=== PATIENT | male | born 1950 | race Hispanic/Latino ===

== ENCOUNTER 2021-11-04 11:05 | Day surgery (SDC) | payer OTHER ==
--- NOTE | 2021-11-01 14:33 | RAD REPORT ---
EXAM DESCRIPTION: RAD - Chest Pa And Lat (2 Views) - 11/01/2021 2:25 pm CLINICAL HISTORY: pre procedure screening, pending prostate surgery COMPARISON: None TECHNIQUE: Frontal and lateral views of the chest were obtained. FINDINGS: The lungs are fibrotic but clear of a peripheral mass consolidation. No acute failure or v olume overload suspected. No alivia mass or lymphadenopathy. Heart size is normal and central vascula ture is within normal limits. No pleural effusion or pneumothorax seen. No acute bony finding noted . No aortic abnormality. IMPRESSION: Chronic interstitial lung disease evident. No acute cardiopulmonary process suspected.
[2021-11-01 14:41] LABS: Absolute Lymphocytes (CBC) 2.8 K/uL (0.7-4.9); Hematocrit 44.9 % (39.6-49.0); Lymphocytes % 27.3 % (15.3-44.8); MPV 7.3 fL (7.6-11.3); RBC Red Blood Cell Count 4.97 M/uL (4.33-5.43)
[2021-11-01 14:44] LABS: Protime INR 1.2
[2021-11-04] MEDS ORDERED: CEFAZOLIN SODIUM 1 GM/VIAL ONE (12:14)
[2021-11-04] MEDS ORDERED: propofoL 200 MG/20 ML VIAL IV ONE (12:25)
[2021-11-04] MEDS ORDERED: LIDOCAINE 1% MPF 5 ML VIAL ONE (12:25)
[2021-11-04] MEDS ORDERED: MIDAZOLAM HCL 2 MG/2 ML INJ ONE (12:25)
[2021-11-04] MEDS ORDERED: FENTANYL CITR 100 MCG/2 ML ONE (12:25)
[2021-11-04] MEDS ORDERED: ONDANSETRON 4 MG/2 ML VIAL ONE (12:26)
[2021-11-04] MEDS ORDERED: KETOROLAC 30 MG/ML INJ ONE (12:26)
[2021-11-04] MEDS ORDERED: dexAMETHasone 10 MG/ML VIAL ONE (12:26)
[2021-11-04] MEDS: Ringers Lactate 1,000 ML IV ONE ×2 (13:00→14:01)
[2021-11-04] MEDS ORDERED: Phenylephrine HCl 10 MG/ML 1 ML VIAL ONE (14:25)
[2021-11-04] MEDS ORDERED: NS 0.9% VIAL 10 ML ONE (14:25)
[2021-11-04] MEDS ORDERED: CODEINE 30MG/APAP 300MG TAB PO PRN (15:12)
[2021-11-04 16:48] VITALS: BP 123/74; TEMP 97.6; O2SAT 96
--- NOTE | 2021-11-05 01:41 | OP ---
Surgeon: АНДРЕЙ DE DIOS Preoperative Diagnosis: Bladder tumor, left lateral wall. Postoperative Diagnosis: Bladder tumor, left lateral wall. Principle Procedure: Transurethral resection of a bladder tumor, 2-3 cm in diameter. Indication For Procedure: Mr. Tidwell presented to the Urology Clinic, initially concerned about some scrotal swelling, which was found to be hydrocele and desiring to have that managed surgically. On further evaluation, he was found to have significant bothersome lower urinary symptoms and as a chron ic smoker, with microscopic hematuria, he underwent a cystoscopic evaluation revealing the presence o f a left lateral wall bladder tumor. He thus presents for definitive surgical resection. Procedure In Detail: The patient was consented in the preoperative holding area before being transfe rred to the operative suite where general anesthesia was induced. He was given Ancef 2 g IV antimicr obial prophylaxis and pneumo boots were provided for DVT prophylaxis. He was placed in the lithotomy position, padded, and secured to the table appropriately. His genitalia were prepped using Hibiclen s and draped in standard fashion using urethral sounds to dilate the meatus and fossa navicularis, af ter which, a 26-Ghanaian resectoscope was placed using a visual buhr mill operator via the urethra and into his b ladder with ease. There was significant trilobar BPH with an intravesically projecting median lobe. I then surveyed the bladder in its entirety, and while there was trabeculation and some small cellul e and small diverticula formation, within the left lateral wall as previously had been observed, ther e was a sessile with somewhat papillary bladder tumor noted that was about 2-3 cm in diameter. Thus, using a loop and the bipolar resection scope as well as normal saline, the tumor was resected in its entirety from its position within the left lateral wall. Those fragments were then removed and sent for pathologic analysis using an Zoran. I then used a cold cup biopsy forceps to biopsy the base of the tumor and sent that separately as a base of tumor bladder biopsies. These were also sent for pa thologic analysis. I then carefully fulgurated the entirety of the lesion including the periphery of the lesion and any bleeding vessels at the base. There was no entry into fat or sign of perforation noted. However, because of his obstructive appearance to his prostate and bladder, instead of leavi ng him to void and potentially create a rupture, I elected to place an 18-Ghanaian coude tip Zepeda cath eter after I Zoran evacuated his bladder of all circulating tumor cells and blood. The catheter was placed with some mild difficulty due to the presence of the median lobe, but once in the bladder, 15 cc of sterile water was placed in the balloon. The returning drainage was crystal clear. The patien t was then taken out of the lithotomy position, awakened from general anesthesia, transferred to a [facility], and then transferred to the recovery room in good condition. Complications: None. Discharge Disposition: He will need to follow up in the Urology Clinic within the next 2-3 weeks to discuss the results of the pathology and determine next steps in management of his likely urothelial carcinoma of the bladder. DAMARIS/SONYA Voice ID: [id number] Report ID: [id number]
== END 2021-11-04 16:45 | disposition home or self-care (01) ==
LOC: OR 11:05
PROVIDERS: ATTEND Urology
PROC: 0TBB8ZX Excision of Bladder, Via Natural or Artificial Opening Endoscopic, Diagnostic (ICD-10-PCS; principal; 2021-11-04 13:00)
DX: D09.0 Carcinoma in situ of bladder (principal); N43.3 Hydrocele, unspecified; Z20.822 Contact with and (suspected) exposure to COVID-19
CPT/HCPCS: 52235; 93005; 87088; 85025; 87086; 36415; 85610; 88305; 88307; 71046; G0103; U0003; J2704; J2370; J2250; J3010; J7120; J2405; J0690; J1100

== ENCOUNTER 2022-01-14 08:54 | Day surgery (SDC) | payer OTHER ==
[2022-01-14] MEDS ORDERED: OPIUM/BELLADONNA SUPPOS (30-16.2 MG) PR ONE (09:20)
[2022-01-14] MEDS ORDERED: LIDOCAINE JELLY 2% 5 ML SYRINGE TOP ONE (09:21)
[2022-01-14 09:26] VITALS: TEMP 97.7; BMI 29.9
[2022-01-14] MEDS ORDERED: GEMCITABINE HCL 26.3 ML IVPB ONE (09:30)
[2022-01-14 11:01] LABS: Urine Appearance Clear (Clear); Urine Bilirubin Negative (Negative); Urine Blood Negative (Negative); Urine Color Yellow (Yellow); Urine Glucose Negative (Negative); Urine Microscopic Reflex NO UMIC; Urine Protein Negative (Negative); Urine Urobilinogen 0.2 mg/dL (0.2-1.0); Urine pH 5.5 (5.0-7.0)
[2022-01-14 12:47] VITALS: BP 109/69; O2SAT 95
--- NOTE | 2022-01-14 21:11 | OP ---
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 Principal Procedures: 1.Instillation of gemcitabine 2 g intravesical chemotherapy. 2.Insertion of urethral Zepeda catheter. Indication For Procedure: Mr. Tidwell underwent TURBT of a large volume low-grade papillary urothelia l tumor. He presents today for the 6th of 6 instillations and an induction phase of chemotherapy. Procedure In Detail: The patient was consented before being placed supine on the procedure table, an d his genitalia were prepped with Betadine and draped in standard fashion. Lidocaine Uro-Jet was mely lied intraurethrally for local anesthesia. A 16-Paraguayan urethral Zepeda catheter was placed via his ur ethra into his bladder with ease and clear yellow urine effluxed. He had been previously given a bel wilfrid and opium suppository for local anesthesia, and urinalysis had also been obtained, which was unremarkable for infection. His bladder was then decompressed and his genitalia was toweled off. He was covered with a fluid permeable draped from head to toe and provided a face shield for splash pro tection. I then retrograde instilled 2 g of gemcitabine in 50 cc normal saline into his bladder with ease before clamping the solution within his bladder and connecting the catheter to a leg bag for ea se of subsequent evacuation. He was then allowed to rotate by 1/4 turn over the course of the next h our targeting 90 minutes of total therapy with 60 minutes minimum. He tolerated the procedure well w ithout complications, and in the end, his bladder was decompressed of the chemotherapy and urine. Th e waist and the catheter were discarded in the chemotherapeutic place containers, and he was allowed to wash, get dressed, and then be discharged from the day procedure area per protocol. He tolerated the procedure well and without complications Discharge Disposition: He should follow up around the beginning of February for outpatient cystoscopic e valuation and followup of his TURBT performed 11/04/2021. DAMARIS/SONYA Voice ID: [id number] Report ID: [id number]
== END 2022-01-14 12:10 | disposition home or self-care (01) ==
LOC: DS 08:54
PROVIDERS: ATTEND Urology
PROC: 3E0K705 Introduction of Other Antineoplastic into Genitourinary Tract, Via Natural or Artificial Opening (ICD-10-PCS; principal; 2022-01-14)
DX: C67.9 Malignant neoplasm of bladder, unspecified (principal); D49.4 Neoplasm of unspecified behavior of bladder
CPT/HCPCS: 81003; 96365; 96366; 51720; J9201